=== PATIENT | female | born 1980 | race Hispanic/Latino ===

== ENCOUNTER 2018-07-18 10:11 | Inpatient (IN) | payer SELFPAY ==
[~2018-07-18] VITALS: Ht 165.1 cm; Wt 78.0 kg
[2018-07-18] MEDS ORDERED: ACETAMINOPHEN 325 MG TAB ONE (10:27)
[2018-07-18 10:45] LABS: BASOPHILS % (AUTO) 0.9 % (0.0-5.0); HEMATOCRIT 37.9 % (36-48); LYMPHOCYTES % (AUTO) 10.3 % (21.0-51.0); MEAN CORPUSCULAR HGB CONC 35.7 g/dL (32.0-36.0); MEAN CORPUSCULAR VOLUME 89.8 fL (79-99); MONOCYTES % (AUTO) 4.7 % (3.0-13.0); NEUTROPHILS % (AUTO) 84.1 % (40.0-77.0); PLATELET COUNT (AUTO) 241 K/uL (130-400); RED BLOOD CELL COUNT(AUTO) 4.22 MIL/uL (4.00-5.50); RED CELL DISTRIBUTION WIDTH 13.1 % (11.0-15.5); WHITE BLOOD COUNT (AUTO) 6.4 K/uL (4.8-10.8)
[2018-07-18 11:24] LABS: AMYLASE 25 U/L (25-115); LIPASE 137 U/L (114-286)
[2018-07-18] MEDS ORDERED: SODIUM CHLORIDE 0.9% 1000ML 1,000 ML IV ONE (11:32)
[2018-07-18 11:46] LABS: ALBUMIN 3.5 g/dL (3.5-5.0); BILIRUBIN,TOTAL 0.9 mg/dL (0.2-1.0); CREATININE 0.7 mg/dL (0.5-1.5); POTASSIUM 3.3 mmol/L (3.5-5.1); TOTAL PROTEIN, SERUM 7.7 g/dL (6.0-8.3)
[2018-07-18 11:50] LABS: APPEARANCE,URINE Cloudy (CLEAR); BILIRUBIN,URINE Negative (NEGATIVE); COLOR,URINE Dark Yellow (YELLOW); GLUCOSE, URINE (UA) >=1000 mg/dL (NEGATIVE); KETONES,URINE >=80 mg/dL (NEGATIVE); LEUKOCYTE ESTERASE ,URINE Negative (NEGATIVE); NITRATE,URINE Negative (NEGATIVE); OCCULT BLOOD,URINE Moderate (NEGATIVE); PROTEIN,URINE 300 (NEGATIVE)
[2018-07-18 12:12] LABS: BACTERIA,URINE Rare /HPF (None Seen); MUCUS,URINE Rare LPF (None Seen); SQUAMOUS EPITHELIAL CELL,UR Rare /HPF (0-2); WBC,URINE 51-100 /HPF (0-1)
[2018-07-18 12:13] LABS: RENAL EPITHELIAL CELLS,URINE Rare /HPF (None Seen)
[2018-07-18] MEDS ORDERED: ONDANSETRON HCL 4 MG/2 ML VIAL ONE (12:16)
[2018-07-18 12:17] LABS: HCG,QUAL RESULT NEGATIVE (NEGATIVE)
[2018-07-18 12:25] LABS: AMPHET/METH SCREEN,URINE NEGATIVE (NEGATIVE); BARBITURATE SCREEN, URINE NEGATIVE (NEGATIVE); BENZODIAZEPINES SCREEN,URINE NEGATIVE (NEGATIVE); CANNABINOID SCREEN,URINE NEGATIVE (NEGATIVE); COCAINE SCREEN,URINE NEGATIVE (NEGATIVE); OPIATE SCREEN,URINE NEGATIVE (NEGATIVE); PHENCYCLIDINE SCREEN,URINE NEGATIVE (NEGATIVE)
[2018-07-18] MEDS ORDERED: ZOSYN 3.375GM+NS 50ML 50 ML IV ONE (14:26)
[2018-07-18] MEDS ORDERED: SODIUM CHLORIDE 0.9% 50 ML IV ONE (14:26)
[2018-07-18 16:40] VITALS: BP 130/81
[2018-07-18] MEDS: SODIUM CHLORIDE 0.9% 1000ML 1,000 ML IV SCH ×2 (17:41→20:03)
[2018-07-18 19:00] VITALS: BP 136/73
[2018-07-18] MEDS ORDERED: ONDANSETRON HCL 4 MG/2 ML VIAL IV PRN (20:15)
[2018-07-18 20:46] LABS: CREATININE 0.7 mg/dL (0.5-1.5); POTASSIUM 3.4 mmol/L (3.5-5.1)
[2018-07-18] MEDS: INSULIN HUMULIN R 100 UNIT/ML 3ML SQ SCH (21:00)
[2018-07-18] MEDS: ACETAMINOPHEN 325 MG TAB PO PRN (21:10)
[2018-07-18 23:00] VITALS: BP 119/76
[2018-07-19] MEDS: SODIUM CHLORIDE 0.9% 1000ML 1,000 ML IV SCH ×4 (02:09→23:22)
[2018-07-19] MEDS: ACETAMINOPHEN 325 MG TAB PO PRN ×4 (02:46→20:24)
[2018-07-19 03:00] VITALS: BP 128/68
[2018-07-19 05:33] LABS: HEMATOCRIT 34.5 % (36-48); MEAN CORPUSCULAR HEMOGLOBIN 30.3 pg (27.0-33.0); MEAN CORPUSCULAR HGB CONC 34.2 g/dL (32.0-36.0); MEAN CORPUSCULAR VOLUME 88.7 fL (79-99); PLATELET COUNT (AUTO) 158 K/uL (130-400); RED CELL DISTRIBUTION WIDTH 13.2 % (11.0-15.5); WHITE BLOOD COUNT (AUTO) 4.8 K/uL (4.8-10.8)
[2018-07-19 05:39] LABS: HEMOGLOBIN A1C 8.5 % (4.0-6.0)
[2018-07-19 05:58] LABS: ALBUMIN 2.7 g/dL (3.5-5.0); BILIRUBIN,TOTAL 0.8 mg/dL (0.2-1.0); CREATININE 0.7 mg/dL (0.5-1.5); POTASSIUM 3.3 mmol/L (3.5-5.1); TOTAL PROTEIN, SERUM 7.1 g/dL (6.0-8.3)
[2018-07-19 06:03] LABS: BAND NEUTROPHILS % (MANUAL) 10 % (0-2); LYMPHOCYTES % (MANUAL) 10 % (22-44); MONOCYTES % (MANUAL) 4 % (2-9); SEGMENTED NEUTROPHILS % 76 % (40-70)
[2018-07-19 06:04] LABS: MAN.DIFF COMMENT-IMPRESSION MANUAL DIFFERENTIAL
[2018-07-19 06:05] LABS: PLATELET MORPHOLOGY COMMENT ADEQUATE
[2018-07-19] MEDS ORDERED: POTASSIUM CHLORIDE 10% ELIXIR 20 MEQ/15 ML UDCUP PO PRN (06:15)
[2018-07-19] MEDS: POTASSIUM CHLORIDE 20 MEQ ERTAB PO PRN ×3 (06:32→17:04)
[2018-07-19] MEDS: INSULIN HUMULIN R 100 UNIT/ML 3ML SQ SCH ×4 (07:30→20:28)
[2018-07-19 08:00] VITALS: BP 136/81
[2018-07-19] MEDS: PANTOPRAZOLE SODIUM 40 MG TABLET.DR PO SCH (09:08)
[2018-07-19] MEDS: DOXYCYCLINE 100MG+NS 250ML 250 ML IV SCH ×2 (10:20→20:24)
[2018-07-19 11:00] VITALS: BP 128/79
[2018-07-19 16:00] VITALS: BP 134/61
[2018-07-19 20:00] VITALS: BP 131/74
[2018-07-19 23:54] VITALS: BP 118/78
[2018-07-20 04:00] VITALS: BP 127/79
[2018-07-20] MEDS: ACETAMINOPHEN 325 MG TAB PO PRN ×2 (04:00→12:07)
[2018-07-20 04:40] LABS: MEAN CORPUSCULAR HEMOGLOBIN 31.3 pg (27.0-33.0); MEAN CORPUSCULAR HGB CONC 35.1 g/dL (32.0-36.0); MEAN CORPUSCULAR VOLUME 89.3 fL (79-99); PLATELET COUNT (AUTO) 134 K/uL (130-400); RED BLOOD CELL COUNT(AUTO) 3.58 MIL/uL (4.00-5.50); RED CELL DISTRIBUTION WIDTH 13.1 % (11.0-15.5); WHITE BLOOD COUNT (AUTO) 5.3 K/uL (4.8-10.8)
[2018-07-20 05:02] LABS: CREATININE 0.6 mg/dL (0.5-1.5); POTASSIUM 3.2 mmol/L (3.5-5.1); URIC ACID 3.4 mg/dL (2.6-7.2)
[2018-07-20] MEDS: INSULIN HUMULIN R 100 UNIT/ML 3ML SQ SCH ×4 (06:26→21:00)
[2018-07-20] MEDS: POTASSIUM CHLORIDE 20 MEQ ERTAB PO PRN ×3 (06:33→17:00)
[2018-07-20 08:25] VITALS: BP 138/83
[2018-07-20] MEDS: PANTOPRAZOLE SODIUM 40 MG TABLET.DR PO SCH (08:51)
[2018-07-20] MEDS: DOXYCYCLINE 100MG+NS 250ML 250 ML IV SCH (08:51)
[2018-07-20] MEDS: SODIUM CHLORIDE 0.9% 1000ML 1,000 ML IV SCH ×2 (08:55→16:23)
[2018-07-20 11:54] VITALS: BP 150/91
[2018-07-20 16:04] VITALS: BP 102/68
[2018-07-20] MEDS: CEFTRIAXONE SODIUM 1 GM IVP SCH (16:14)
[2018-07-20 20:00] VITALS: BP 145/92
[2018-07-20] MEDS ORDERED: KETOROLAC TROMETHAMINE 15MG/ML IV ONE (20:00)
[2018-07-20] MEDS ORDERED: KETOROLAC TROMETHAMINE 15MG/ML ONE (21:03)
[2018-07-20 23:32] VITALS: BP 140/81
[2018-07-21] MEDS: SODIUM CHLORIDE 0.9% 1000ML 1,000 ML IV SCH ×2 (02:44→15:00)
[2018-07-21] MEDS: DOXYCYCLINE 100MG+NS 250ML 250 ML IV SCH ×3 (02:44→21:50)
[2018-07-21] MEDS: ACETAMINOPHEN 325 MG TAB PO PRN ×3 (02:45→21:48)
[2018-07-21 04:00] VITALS: BP 139/86
[2018-07-21 04:43] LABS: HEMATOCRIT 34.1 % (36-48); MEAN CORPUSCULAR HEMOGLOBIN 30.1 pg (27.0-33.0); MEAN CORPUSCULAR HGB CONC 33.8 g/dL (32.0-36.0); MEAN CORPUSCULAR VOLUME 88.9 fL (79-99); PLATELET COUNT (AUTO) 135 K/uL (130-400); RED BLOOD CELL COUNT(AUTO) 3.84 MIL/uL (4.00-5.50); RED CELL DISTRIBUTION WIDTH 13.3 % (11.0-15.5); WHITE BLOOD COUNT (AUTO) 7.9 K/uL (4.8-10.8)
[2018-07-21 04:56] LABS: CREATININE 0.7 mg/dL (0.5-1.5); POTASSIUM 3.5 mmol/L (3.5-5.1)
[2018-07-21] MEDS: INSULIN HUMULIN R 100 UNIT/ML 3ML SQ SCH ×4 (07:48→21:00)
[2018-07-21] MEDS: PANTOPRAZOLE SODIUM 40 MG TABLET.DR PO SCH (08:03)
[2018-07-21] MEDS: POTASSIUM CHLORIDE 20 MEQ ERTAB PO PRN ×2 (08:04→14:48)
[2018-07-21 09:29] VITALS: BP 142/90
[2018-07-21 13:11] VITALS: BP 141/77
[2018-07-21 13:16] VITALS: BP 136/99
[2018-07-21] MEDS: CEFTRIAXONE SODIUM 1 GM IVP SCH (14:28)
[2018-07-21 18:05] VITALS: BP 157/111
[2018-07-21] MEDS ORDERED: FLUCONAZOLE 100 MG TAB PO ONE (19:00)
[2018-07-21 20:00] VITALS: BP 141/97
[2018-07-22] VITALS: BP 124/85
[2018-07-22] MEDS: SODIUM CHLORIDE 0.9% 1000ML 1,000 ML IV SCH ×2 (01:52→21:00)
[2018-07-22 04:00] VITALS: BP 152/97
[2018-07-22] MEDS: INSULIN HUMULIN R 100 UNIT/ML 3ML SQ SCH ×4 (06:58→20:27)
[2018-07-22] MEDS: ACETAMINOPHEN 325 MG TAB PO PRN ×3 (07:02→21:00)
[2018-07-22 08:00] VITALS: BP 138/88
[2018-07-22] MEDS: PANTOPRAZOLE SODIUM 40 MG TABLET.DR PO SCH (09:14)
[2018-07-22] MEDS: DOXYCYCLINE 100MG+NS 250ML 250 ML IV SCH ×2 (09:14→20:31)
[2018-07-22 11:56] VITALS: BP 146/96
[2018-07-22 15:58] VITALS: BP 138/94
[2018-07-22] MEDS: CEFTRIAXONE SODIUM 1 GM IVP SCH (16:04)
[2018-07-22 19:00] VITALS: BP 138/94
[2018-07-23] VITALS (7 sets, daily range): BP systolic 125–146; BP diastolic 79–98
[2018-07-23 04:43] LABS: BASOPHILS % (AUTO) 0.8 % (0.0-5.0); EOSINOPHILS % (AUTO) 0.3 % (0.0-8.0); HEMATOCRIT 31.1 % (36-48); LYMPHOCYTES % (AUTO) 16.3 % (21.0-51.0); MEAN CORPUSCULAR HEMOGLOBIN 31.4 pg (27.0-33.0); MEAN CORPUSCULAR HGB CONC 35.3 g/dL (32.0-36.0); MEAN CORPUSCULAR VOLUME 88.8 fL (79-99); MONOCYTES % (AUTO) 6.9 % (3.0-13.0); NEUTROPHILS % (AUTO) 75.7 % (40.0-77.0); NUCLEATED RED BLOOD CELLS 0.1 % (0.0-0.19); PLATELET COUNT (AUTO) 221 K/uL (130-400); RED CELL DISTRIBUTION WIDTH 13.5 % (11.0-15.5); WHITE BLOOD COUNT (AUTO) 8.3 K/uL (4.8-10.8)
[2018-07-23 05:08] LABS: ALBUMIN 2.4 g/dL (3.5-5.0); BILIRUBIN,TOTAL 0.5 mg/dL (0.2-1.0); CREATININE 0.6 mg/dL (0.5-1.5); TOTAL PROTEIN, SERUM 6.7 g/dL (6.0-8.3)
[2018-07-23 05:16] LABS: POTASSIUM 2.7 mmol/L (3.5-5.1)
[2018-07-23] MEDS: LIDOCAINE HCL-MPF 1% 2ML VIAL IVP PRN ×2 (05:43→15:58)
[2018-07-23] MEDS: POTASSIUM CHLORIDE 20MEQ/100ML 100 ML IV PRN ×2 (05:47→15:58)
[2018-07-23] MEDS: INSULIN HUMULIN R 100 UNIT/ML 3ML SQ SCH ×4 (08:20→21:16)
[2018-07-23] MEDS ORDERED: MAGNESIUM 2GM PREMIX 50ML 50 ML IV PRN (08:30)
[2018-07-23] MEDS ORDERED: MAGNESIUM 2GM PREMIX 50ML 50 ML IV SCH (09:00)
[2018-07-23] MEDS: DOXYCYCLINE 100MG+NS 250ML 250 ML IV SCH ×2 (09:29→21:24)
[2018-07-23] MEDS: PANTOPRAZOLE SODIUM 40 MG TABLET.DR PO SCH (09:29)
[2018-07-23] MEDS: ACETAMINOPHEN 325 MG TAB PO PRN ×2 (09:34→16:45)
[2018-07-23] MEDS: SODIUM CHLORIDE 0.9% 1000ML 1,000 ML IV SCH (09:39)
[2018-07-23] MEDS: NYSTATIN 15 GM POWDER TP SCH ×2 (13:53→21:24)
[2018-07-23] MEDS: CEFTRIAXONE SODIUM 1 GM IVP SCH (15:39)
[2018-07-24] MEDS: ACETAMINOPHEN 325 MG TAB PO PRN ×2 (00:47→12:33)
[2018-07-24 04:00] VITALS: BP 131/83
[2018-07-24 05:33] LABS: HEMATOCRIT 33.1 % (36-48); MEAN CORPUSCULAR HEMOGLOBIN 29.7 pg (27.0-33.0); MEAN CORPUSCULAR HGB CONC 33.6 g/dL (32.0-36.0); MEAN CORPUSCULAR VOLUME 88.4 fL (79-99); NUCLEATED RED BLOOD CELLS 0.1 % (0.0-0.19); PLATELET COUNT (AUTO) 253 K/uL (130-400); RED BLOOD CELL COUNT(AUTO) 3.75 MIL/uL (4.00-5.50); RED CELL DISTRIBUTION WIDTH 13.6 % (11.0-15.5); WHITE BLOOD COUNT (AUTO) 8.6 K/uL (4.8-10.8)
[2018-07-24 05:53] LABS: ALBUMIN 2.5 g/dL (3.5-5.0); BILIRUBIN,TOTAL 0.5 mg/dL (0.2-1.0); CREATININE 0.5 mg/dL (0.5-1.5); MAGNESIUM 2.1 mg/dL (1.80-2.40); TOTAL PROTEIN, SERUM 6.7 g/dL (6.0-8.3)
[2018-07-24 05:58] LABS: POTASSIUM 2.8 mmol/L (3.5-5.1)
[2018-07-24] MEDS: INSULIN HUMULIN R 100 UNIT/ML 3ML SQ SCH ×4 (06:26→20:19)
[2018-07-24] MEDS: LIDOCAINE HCL-MPF 1% 2ML VIAL IVP PRN (06:27)
[2018-07-24] MEDS: POTASSIUM CHLORIDE 20MEQ/100ML 100 ML IV PRN (06:27)
[2018-07-24 07:00] VITALS: BP 123/81
[2018-07-24] MEDS: NYSTATIN 15 GM POWDER TP SCH ×3 (08:19→20:20)
[2018-07-24] MEDS: PANTOPRAZOLE SODIUM 40 MG TABLET.DR PO SCH (08:19)
[2018-07-24] MEDS: DOXYCYCLINE 100MG+NS 250ML 250 ML IV SCH (08:20)
[2018-07-24 11:00] VITALS: BP 143/72
[2018-07-24] MEDS: POTASSIUM CHLORIDE 20 MEQ ERTAB PO PRN ×5 (11:54→23:36)
[2018-07-24] MEDS: CEFTRIAXONE SODIUM 1 GM IVP SCH (15:21)
[2018-07-24 16:00] VITALS: BP 132/96
[2018-07-24 19:00] VITALS: BP 151/88
[2018-07-24] MEDS: DOXYCYCLINE HYCLATE 100 MG TABLET PO SCH (20:18)
[2018-07-25] VITALS: BP 133/95
[2018-07-25 04:00] VITALS: BP 122/75
[2018-07-25] MEDS: POTASSIUM CHLORIDE 20 MEQ ERTAB PO PRN ×3 (04:15→12:06)
[2018-07-25 05:19] LABS: BASOPHILS % (AUTO) 0.7 % (0.0-5.0); EOSINOPHILS % (AUTO) 0.9 % (0.0-8.0); HEMATOCRIT 31.4 % (36-48); LYMPHOCYTES % (AUTO) 25.6 % (21.0-51.0); MEAN CORPUSCULAR HEMOGLOBIN 31.1 pg (27.0-33.0); MEAN CORPUSCULAR HGB CONC 34.8 g/dL (32.0-36.0); MEAN CORPUSCULAR VOLUME 89.3 fL (79-99); MONOCYTES % (AUTO) 10.9 % (3.0-13.0); NEUTROPHILS % (AUTO) 61.9 % (40.0-77.0); PLATELET COUNT (AUTO) 300 K/uL (130-400); RED BLOOD CELL COUNT(AUTO) 3.51 MIL/uL (4.00-5.50); WHITE BLOOD COUNT (AUTO) 8.5 K/uL (4.8-10.8)
[2018-07-25 05:29] LABS: ALBUMIN 2.5 g/dL (3.5-5.0); BILIRUBIN,TOTAL 0.4 mg/dL (0.2-1.0); CREATININE 0.6 mg/dL (0.5-1.5); MAGNESIUM 1.9 mg/dL (1.80-2.40); POTASSIUM 3.6 mmol/L (3.5-5.1); TOTAL PROTEIN, SERUM 6.6 g/dL (6.0-8.3)
[2018-07-25] MEDS: PANTOPRAZOLE SODIUM 40 MG TABLET.DR PO SCH (06:28)
[2018-07-25] MEDS: INSULIN HUMULIN R 100 UNIT/ML 3ML SQ SCH ×2 (06:30→12:01)
[2018-07-25 08:00] VITALS: BP 131/94
[2018-07-25] MEDS: DOXYCYCLINE HYCLATE 100 MG TABLET PO SCH (09:06)
[2018-07-25] MEDS: NYSTATIN 15 GM POWDER TP SCH ×2 (09:07→14:01)
[2018-07-25 12:00] VITALS: BP 130/95
[2018-07-25] MEDS: CEFTRIAXONE SODIUM 1 GM IVP SCH (13:58)
== END 2018-07-25 15:00 | disposition home or self-care (01) | DRG 871 ==
LOC: EDH 10:11 → OBSVTOIN 10:12 → EDHIP 10:12 → INTOOBSV 10:12 → UNDOADMIN 10:12 → 3AH 16:39
PROVIDERS: ADMIT Internal Medicine; ATTEND Internal Medicine
PROC: 0UPD7HZ Removal of Contraceptive Device from Uterus and Cervix, Via Natural or Artificial Opening (ICD-10-PCS; principal; 2018-07-22)
DX: A41.9 Sepsis, unspecified organism (principal); J10.00 Influenza due to other identified influenza virus with unspecified type of pneumonia; E87.1 Hypo-osmolality and hyponatremia; N39.0 Urinary tract infection, site not specified; A79.9 Rickettsiosis, unspecified; E66.9 Obesity, unspecified; E78.00 Pure hypercholesterolemia, unspecified; E78.1 Pure hyperglyceridemia; E78.5 Hyperlipidemia, unspecified; E83.42 Hypomagnesemia; E87.6 Hypokalemia; J10.1 Influenza due to other identified influenza virus with other respiratory manifestations; K76.0 Fatty (change of) liver, not elsewhere classified; N89.8 Other specified noninflammatory disorders of vagina; R53.81 Other malaise; E87.8 Other disorders of electrolyte and fluid balance, not elsewhere classified; B37.9 Candidiasis, unspecified; T36.95XA Adverse effect of unspecified systemic antibiotic, initial encounter; Y92.89 Other specified places as the place of occurrence of the external cause; Z79.4 Long term (current) use of insulin; Z68.28 Body mass index [BMI] 28.0-28.9, adult; Z86.32 Personal history of gestational diabetes; Z97.5 Presence of (intrauterine) contraceptive device; Z28.21 Immunization not carried out because of patient refusal; Z83.3 Family history of diabetes mellitus; Z82.49 Family history of ischemic heart disease and other diseases of the circulatory system
CPT/HCPCS: 36415; 71250; 74176; 80048; 80053; 80061; 80305; 81001; 81025; 82150; 82533; 82948; 83036; 83690; 83735; 83930; 83935; 84132; 84300; 84550; 85025; 85027; 86000; 86757; 87040; 87070; 87076; 87088; 87186; 87486; 87797; 87804; 93005; 93306; A4218; C1894; J0696; J1815; J1885; J2405; J2543; J3475; J3480; J3490; J7030

== ENCOUNTER 2018-08-08 09:27 | Emergency (ER) | payer OTHER ==
[2018-08-08 10:01] LABS: APPEARANCE,URINE Clear (CLEAR); BILIRUBIN,URINE Negative (NEGATIVE); COLOR,URINE Yellow (YELLOW); GLUCOSE, URINE (UA) 500 mg/dL (NEGATIVE); KETONES,URINE Negative (NEGATIVE); LEUKOCYTE ESTERASE ,URINE Negative (NEGATIVE); NITRATE,URINE Negative (NEGATIVE); OCCULT BLOOD,URINE Moderate (NEGATIVE); PH,URINE 5.5 (5.0-8.0); PROTEIN,URINE Negative (NEGATIVE); UROBILINOGEN,URINE 0.2 mg/dL (0.2-1.0)
[2018-08-08 10:04] LABS: HCG,QUAL RESULT NEGATIVE (NEGATIVE)
[2018-08-08 10:10] LABS: BASOPHILS % (AUTO) 0.6 % (0.0-5.0); EOSINOPHILS % (AUTO) 0.7 % (0.0-8.0); MEAN CORPUSCULAR HEMOGLOBIN 31.1 pg (27.0-33.0); MEAN CORPUSCULAR HGB CONC 34.4 g/dL (32.0-36.0); MEAN CORPUSCULAR VOLUME 90.5 fL (79-99); MONOCYTES % (AUTO) 8.5 % (3.0-13.0); NEUTROPHILS % (AUTO) 49.2 % (40.0-77.0); PLATELET COUNT (AUTO) 364 K/uL (130-400); RED BLOOD CELL COUNT(AUTO) 4.31 MIL/uL (4.00-5.50); RED CELL DISTRIBUTION WIDTH 14.5 % (11.0-15.5); WHITE BLOOD COUNT (AUTO) 4.4 K/uL (4.8-10.8)
[2018-08-08 10:12] LABS: WBC,URINE None Seen /HPF (0-1)
[2018-08-08 10:14] LABS: BACTERIA,URINE Rare /HPF (None Seen); MUCUS,URINE Few LPF (None Seen); RBC,URINE 0-1 /HPF (0-1); SQUAMOUS EPITHELIAL CELL,UR Rare /HPF (0-2)
[2018-08-08 10:16] LABS: CREATININE 0.8 mg/dL (0.5-1.5); POTASSIUM 3.8 mmol/L (3.5-5.1)
[2018-08-08] MEDS ORDERED: LIDOCAINE HCL 2% VISCOUS 15 ML UDCUP ONE (10:35)
[2018-08-08] MEDS ORDERED: MAG HYDROX/AL HYDROX/SIMETH ES 30 ML SUSP UDCUP ONE (10:35)
[2018-08-08] MEDS ORDERED: SODIUM CHLORIDE 0.9% 1000ML 1,000 ML IV ONE (10:56)
[2018-08-08] MEDS ORDERED: FAMOTIDINE/PF 20 MG/2 ML VIAL IV ONE (10:57)
[2018-08-08] MEDS ORDERED: IOHEXOL 350 MG/ML 100ML INFUS..BTL IV ONE (13:32)
== END 2018-08-08 16:12 | disposition home or self-care (01) ==
LOC: EDH 09:27
DX: J18.9 Pneumonia, unspecified organism (principal); R07.89 Other chest pain; E11.9 Type 2 diabetes mellitus without complications; Z98.890 Other specified postprocedural states
CPT/HCPCS: 36415; 71045; 71275; 80048; 81001; 81025; 82948; 84484 ×2; 85025; 85378; 93005; 96374; 99285; J3490; J7030; Q9967

== ENCOUNTER 2018-08-26 08:58 | Emergency (ER) | payer SELFPAY ==
[2018-08-26 10:10] LABS: BASOPHILS % (AUTO) 0.5 % (0.0-5.0); EOSINOPHILS % (AUTO) 0.6 % (0.0-8.0); HEMATOCRIT 40.1 % (36-48); MEAN CORPUSCULAR HEMOGLOBIN 31.1 pg (27.0-33.0); MEAN CORPUSCULAR HGB CONC 34.5 g/dL (32.0-36.0); MEAN CORPUSCULAR VOLUME 90.2 fL (79-99); MONOCYTES % (AUTO) 4.7 % (3.0-13.0); NEUTROPHILS % (AUTO) 81.2 % (40.0-77.0); PLATELET COUNT (AUTO) 353 K/uL (130-400); RED BLOOD CELL COUNT(AUTO) 4.45 MIL/uL (4.00-5.50); RED CELL DISTRIBUTION WIDTH 14.1 % (11.0-15.5); WHITE BLOOD COUNT (AUTO) 8.8 K/uL (4.8-10.8)
[2018-08-26 10:15] LABS: APPEARANCE,URINE Clear (CLEAR); BILIRUBIN,URINE Small (NEGATIVE); COLOR,URINE Dark Yellow (YELLOW); GLUCOSE, URINE (UA) >=1000 mg/dL (NEGATIVE); KETONES,URINE 15 mg/dL (NEGATIVE); LEUKOCYTE ESTERASE ,URINE Negative (NEGATIVE); NITRATE,URINE Negative (NEGATIVE); OCCULT BLOOD,URINE Negative (NEGATIVE); PH,URINE 5.5 (5.0-8.0); PROTEIN,URINE POS 2+ (NEGATIVE)
[2018-08-26 10:21] LABS: POTASSIUM 3.5 mmol/L (3.5-5.1)
[2018-08-26 10:25] LABS: RBC,URINE 0-1 /HPF (0-1)
[2018-08-26 10:26] LABS: BACTERIA,URINE Rare /HPF (None Seen); MUCUS,URINE Few LPF (None Seen); SQUAMOUS EPITHELIAL CELL,UR Few /HPF (0-2); WBC,URINE 0-1 /HPF (0-1)
[2018-08-26 10:29] LABS: BILIRUBIN,TOTAL 0.9 mg/dL (0.2-1.0); TOTAL PROTEIN, SERUM 8.4 g/dL (6.0-8.3)
[2018-08-26] MEDS ORDERED: ONDANSETRON HCL 4 MG/2 ML VIAL ONE (10:55)
[2018-08-26] MEDS ORDERED: SODIUM CHLORIDE 0.9% 1000ML 1,000 ML IV ONE ×2 (10:56→11:34)
[2018-08-26] MEDS ORDERED: ACETAMINOPHEN EXTRA STRENGTH 500 MG TABLET ONE (11:34)
[2018-08-26] MEDS ORDERED: MAG HYDROX/AL HYDROX/SIMETH ES 30 ML SUSP UDCUP ONE (14:12)
== END 2018-08-26 14:51 | disposition home or self-care (01) ==
LOC: EDH 08:58
DX: E86.0 Dehydration (principal); K29.70 Gastritis, unspecified, without bleeding; R42 Dizziness and giddiness; R51 Headache; E11.9 Type 2 diabetes mellitus without complications; Z79.4 Long term (current) use of insulin
CPT/HCPCS: 36415; 70450; 71045; 74176; 80053; 81001; 81025; 83690; 85025; 93005; 96361; 96374; 96375; 99285; J2405; J7030 ×2

== ENCOUNTER 2018-08-28 14:43 | Emergency (ER) | payer SELFPAY | END 2018-08-28 15:10 | disposition home or self-care (01) | LOC: EDH 14:43 | DX: R19.7 Diarrhea, unspecified (principal); R11.0 Nausea; E11.9 Type 2 diabetes mellitus without complications; Z98.890 Other specified postprocedural states | CPT/HCPCS: 99281 ==

== ENCOUNTER 2025-06-02 14:18 | Emergency (ER) | payer SELFPAY ==
[~2025-06-02] VITALS: Ht 165.1 cm; Wt 81.8 kg
--- NOTE | 2025-06-02 14:27 | ERN ---
ED Note History of Present Illness Stated Complaint: JENNIFER FEET PAIN Chief Complaint: FOOT INJURY/PAIN Time Seen by MD: 14:20 Dictation: PATIENT IS A 45-YEAR-OLD FEMALE COMING IN TODAY WITH COMPLAINTS OF BILATERAL DORSAL FOOT PAIN AFTER SHE CLEANED HER HOUSE THIS MORNING. SHE STATES BEFORE THE WORK SHE WAS NOT HAVING ANY PAIN THEN THE PAIN STARTED. SHE DENIES ANY TRAUMA NO FALLS NO HISTORY OF DIABETES NEUROPATHY. SHE STATES SHE TOOK NOTHING PRIOR TO ARRIVAL FOR PAIN, CAME STRAIGHT TO THE HOSPITAL. Allergies: Coded Allergies: No Known Drug Allergies (Verified Allergy, Unknown, 07/18/18) Home Meds No Active Prescriptions or Reported Meds Past Medical History Past Medical History: No Pertinent History Surgical History: History: Not Applicable RN Note Reviewed/Agreed w/PFSH: Yes Review of System Dictation CONSTITUTIONAL: NEGATIVE EXCEPT FOR HPI HEAD/FACE: NEGATIVE EXCEPT FOR HPI EENT: NEGATIVE EXCEPT FOR HPI RESPIRATORY: NEGATIVE EXCEPT FOR HPI GASTROINTESTINAL/ABDOMINAL: NEGATIVE EXCEPT FOR HPI GENITOURINARY: NEGATIVE EXCEPT FOR HPI MUSCULOSKELETAL: NEGATIVE EXCEPT FOR HPI BILATERAL DORSAL FOOT PAIN INTEGUMENTARY: NEGATIVE EXCEPT FOR HPI NEUROLOGICAL/PSYCH: NEGATIVE EXCEPT FOR HPI HEMATOLOGIC/LYMPHATIC: NEGATIVE EXCEPT FOR HPI ALL SYSTEMS NEGATIVE, EXCEPT NOTED ABOVE. 13 POINT REVIEW OF SYSTEMS ASSESSED AND ALL NEGATIVE EXCEPT FOR ABOVE. Initial Vital Sign VS Vital Signs Date Time Temp Pulse Resp B/P (MAP) Pulse Ox O2 Delivery O2 Flow Rate FiO2 06/02/25 14:20 98.1 95 18 97 Room Air 0 06/02/25 14:26 162/102 21 Physical Exam Dictation VITAL SIGNS REVIEWED GENERAL APPEARANCE: ALERT, ORIENTED X 3, NO ACUTE DISTRESS, WELL DEVELOPED, NOURISHED. HEAD AND FACE: NON-TRAUMATIC. EYES: PERRL, PINK CONJUNCTIVAS, EYELID NO TRAUMA, ANTERIOR CHAMBER WITH ARCUS SENILIS. EARS: PINNAS INTACT AND NO SIGNS OF TRAUMA OR ERYTHEMA EAR CANALS CLEAR AND NO DISCHARGE TM NO ERYTHEMA NOSE: NO DISCHARGE, NO BLEEDING. OROPHARYNX: MOUTH NORMAL, TONGUE PINK, PHARYNX CLEAR,NO ERYTHEMA, TONSILS NO EXUDATES, NO ABSCESSES NOTED, MUCOUS MEMBRANE MOIST NECK: SUPPLE, NON-TENDER, NO THYROMEGALY, NO MASSES, NO JVD, NO BRUITS BREAST:DEFERRED CHEST:NO TENDERNESS, NO CREPITUS, NO PARADOXICAL MOVEMENT, NO RETRACTIONS LUNGS:CLEAR, WELL-VENTILATED, SYMMETRIC, NO RALES, NO WHEEZING, NO RHONCHI, NO STRIDOR, GOOD BREATH SOUNDS BILATERALLY HEART: REGULAR RATE, REGULAR RHYTHM, NO MURMUR, NO GALLOPS VASCULAR: NO PERIPHERAL EDEMA, ABDOMEN: SOFT, POSITIVE BOWEL SOUNDS, NONDISTENDED, NO GUARDING, NONTENDER, NO REBOUND, NO MASSES NO HEPATOMEGALY, NO SPLENOMEGALY, NO MCCANN'S SIGN, NO HERNIAS. RECTAL: DEFERRED GENITAL: DEFERRED NEUROLOGICAL: NORMAL SPEECH, MOTOR FUNCTION INTACT, SENSORY FUNCTION INTACT MUSCULOSKELETAL: NECK NONTENDER, FULL RANGE OF MOTION, BACK NONTENDER, FULL RAN GE OF MOTION, EXTREMITIES: NONTENDER, FULL RANGE OF MOTION SKIN: COLOR PINK, DRY, NO TURGOR, NO RASH, NO LACERATIONS, NO ABRASIONS, NO CONTUSIONS. LYMPHATIC: DEFERRED Results (Laboratory/Radiology) Laboratory/Radiology BILATERAL FOOT X-RAY NEGATIVE Labs Reviewed?: Yes ED Course ED Course Orders Procedure Category Date Status Time Foot Comp 3+Vws Lt RAD 06/02/25 Taken 14:22 Foot Comp 3+Vws Rt RAD 06/02/25 Taken 14:22 Ibuprofen 800 Mg Tab PHA 06/02/25 Complete (Motrin) 14:30 Current Medications Medications (Trade) Dose Ordered Sig/Liset Route PRN Reason Start Time Stop Time Status Last Admin Dose Admin Ibuprofen (moTRIN) 800 mg ONCE ONCE PO 06/02/25 14:30 06/02/25 14:31 DC 06/02/25 14:47 Vital Signs Date Time Temp Pulse Resp B/P (MAP) Pulse Ox O2 Delivery O2 Flow Rate FiO2 06/02/25 14:31 98.6 85 18 84/54 96 Room Air* 0 21 06/02/25 14:26 98.1 95 18 162/102 97 Room Air* 0 21 06/02/25 14:20 98.1 95 18 97 Room Air 0 1458/REFUSED P.R.N. MOTRIN FOR HER PAIN. SHE STATES I AM DRIVING HOME AND I DO NOT WANT TO HAVE ANY PROBLEMS. KAVITHA REASSURED HER THAT THIS WAS NOT INTOXICATED WOULD NOT ALTER HER MENTAL STATUS HOWEVER SHE REFUSED. PATIENT GIVEN RESULTS OF X-RAYS AND WE WILL BE GIVEN A LIST OF LOCAL PRIMARY CARE DOCTORS TO FOLLOW UP FOR HER FOOT PAIN NEXT WEEK. Medical Decision Making MDM MEDICAL DECISION-MAKING WAS BASED ON X-RAYS OF BILATERAL FEET BILATERAL X-RAYS NEGATIVE PATIENT REFUSED P.R.N. ANALGESIA DISCHARGED HOME WITH IBUPROFEN 800 AND A LIST OF PRIMARY CARE DOCTORS ON STAFF AT [facility]. PATIENT AMBULATORY FULL WEIGHT-BEARING DX & DISP Disposition: Discharge Departure Impression: Primary Impression: Bilateral foot pain Condition: Stable Scripts Ibuprofen (Ibuprofen 800 mg Tab) 800 Mg Tab 800 MG PO Q8H PRN for fever or pain, #30 TAB 0 Refills Prov: NILA BOWLES AIR FILLER 06/02/25 Additional Instructions: FOLLOW-UP WITH PRIMARY CARE PROVIDER IN 1 TO 2 DAYS. TAKE MEDICATIONS DIRECTED HERE IN THE EMERGENCY ROOM. OKAY TO CONTINUE HOME MEDICATIONS UNLESS OTHERWISE DISCUSSED DURING YOUR VISIT IN THE EMERGENCY ROOM TODAY. RETURN TO YOUR NEAREST EMERGENCY ROOM IF SYMPTOMS WORSEN OR IF THERE IS NO IMPROVEMENT. CALL 911 IF YOU NEED IMMEDIATE ASSISTANCE. TAKE TYLENOL OR MOTRIN [id number] NEEDED AND IF NO CONTRAINDICATIONS ARE PRESENT. INCREASE ORAL HYDRATION. A WOUND CULTURE OR URINE CULTURE WAS ORDERED HERE IN THE EMERGENCY ROOM DEPARTMENT PLEASE FOLLOW-UP WITH PRIMARY CARE PROVIDER AND ADVISE THEM TO GET REPEAT PORTS FROM OUR FACILITY. IF YOU HAD ANY MICHELLE WRAP/SPLINTS THAT WERE APPLIED HERE, PLEASE DO NOT REMOVE THEM UNTIL YOU SEE YOUR PRIMARY CARE OR SPECIALTY. TAKE IBUPROFEN NEEDED FOR FOOT PAIN WITH FOOD. FOLLOW UP WITH ONE OF THE DOCTORS ON THE LIST PROVIDED YOU IN THE NEXT 2-3 DAYS FOR MANAGEMENT. Referrals: JOSE ANGEL LENNON MD (PCP) Time of Disposition: 15:38 I have reviewed the case, and I agree with, Diagnosis and Plan NILA BOWLES NP Jun 02, 2025 14:27
[2025-06-02 14:31] VITALS: BP 84/54; PULSE 85; RESP 18; TEMP 98.6; O2SAT 96
--- NOTE | 2025-06-02 14:50 | NUR ---
PT REFUSED MEDICATION AFTER IN HER TATI STATING CONCERN ABOUT DRIVING ADVISED POTENTIAL SIDE EFFECTS AND PT REFUSED MEDICATION
[2025-06-02] MEDS ORDERED: IBUP-2077 PO (15:39)
--- NOTE | 2025-06-02 15:49 | NUR ---
UNABLE TO DEPART DUE TO REGISTRATION PROCESS
--- NOTE | 2025-06-02 17:03 | HMCIMG ---
EXAM: CR right foot, 3 View. CLINICAL HISTORY: NON TRAUMA DORSAL FOOT PAIN COMPARISON: None provided. FINDINGS: BONES: No acute fracture or aggressive appearing osseous lesion. JOINTS: The joint spaces appear within normal limits. No dislocation. SOFT TISSUES: The soft tissues are unremarkable. IMPRESSION: No acute osseous abnormality. /[place]
--- NOTE | 2025-06-02 17:04 | HMCIMG ---
EXAM: CR right foot, 3 View. CLINICAL HISTORY: NON TRAUMA DORSAL FOOT PAIN COMPARISON: None provided. FINDINGS: BONES: No acute fracture or aggressive appearing osseous lesion. JOINTS: The joint spaces appear within normal limits. No dislocation. SOFT TISSUES: The soft tissues are unremarkable. IMPRESSION: No acute osseous abnormality. /[place]
== END 2025-06-02 15:45 | disposition home or self-care (01) ==
LOC: EDH 14:18
DX: M79.671 Pain in right foot (principal); M79.672 Pain in left foot; Z98.890 Other specified postprocedural states; X58.XXXA Exposure to other specified factors, initial encounter; Y93.E9 Activity, other interior property and clothing maintenance; Y92.89 Other specified places as the place of occurrence of the external cause; Y99.8 Other external cause status
CPT/HCPCS: 73630; 99283